=== PATIENT | female | born 1985 | race Caucasian/White ===

== ENCOUNTER 2019-09-23 20:50 | Day surgery (SDC) | payer OTHER ==
[2019-09-23 21:20] VITALS: BMI 36.3
[2019-09-23 21:33] LABS: Amnisure Test No Membranes Rupture (No Rupture)
[2019-09-23 21:34] LABS: Amnisure Internal Control QC ACCEPTABLE (ACCEPTABLE)
[2019-09-23] MEDS ORDERED: hydrALAZINE 20 MG/ML VIAL SLOW IVP PRN (21:35)
--- NOTE | 2019-09-23 21:50 | PDOC.EVN ---
Event Note - Event Note Event Note: OBGYN: SSE reviewed with the patient and family member. SSE completed by me with no gel on the spec. No pooling. No LOF with cough or valsalva. also negative. CX looks visually closed. OK for outpatient care. Continue progesterone.
--- NOTE | 2019-09-23 22:00 | HP ---
TIME: 2140 hours. LOCATION: Labor and Delivery Triage, in bed B. Patient of Dr. Dias. CHIEF COMPLAINT: She is here at 26 weeks and 5 days with possible leakage of fluid x1. HISTORY OF PRESENT ILLNESS: This is a 33-year-old, G4, P1 with a previous at 36 weeks, who is now at 26 weeks and 5 days, who states that she had some vaginal pressure and then felt "possible small leak x1 at about 18:30." This has come and gone, and she is not actively having the symptoms now. She denies vaginal bleeding or fever or any true contractions. She denies any headache or visual changes. REVIEW OF SYSTEMS: Complete review of systems was checked and is otherwise negative unless specified in the HPI. PAST MEDICAL HISTORY: Negative. OB HISTORY: She had a at 36 weeks. PAST SURGICAL HISTORY: Includes her and foot surgery. MEDICATIONS: Progesterone by IM injection. ALLERGIES: NONE. PHYSICAL EXAMINATION: VITAL SIGNS: Show a blood pressure of 118/78, temperature of 98.7, pulse of 100, respirations are 16 to 18 and they are unlabored. GENERAL: She is in no acute distress. ABDOMEN: Soft and nontender. : Perineal exam reveals no evidence of gross rupture or vaginal bleeding. Sterile spec exam is currently pending. On monitor, heart tones are in the 130s to 140s and there is variability and is reactive. There are no contractions on tocodynamometer. It is important to note that even though the estimated gestational age is 26 weeks, it is reactive for dates. Interventions ordered; I have requested an AmniSure and that is pending. ASSESSMENT: This is a 33-year-old, G4, P1, with a previous x1, who is currently at 26 weeks and 5 days with a concern of leakage of fluid. PLAN: 1. AmniSure is collected and pending. 2. Sterile spec exam pending. 3. If both of these are negative, we will give reassurance. 4. We will also check her cervix visually with sterile spec exam. Job ID: [id number]
== END 2019-09-23 22:00 | disposition home or self-care (01) ==
LOC: L&D/OP 20:50
PROVIDERS: ATTEND Student in an Organized Health Care Education/Training Program
DX: O99.89 Other specified diseases and conditions complicating pregnancy, childbirth and the puerperium (principal); R10.2 Pelvic and perineal pain; O34.219 Maternal care for unspecified type scar from previous cesarean delivery; Z3A.26 26 weeks gestation of pregnancy
CPT/HCPCS: 84112; 99283

== ENCOUNTER 2019-12-17 02:45 | Inpatient (IN) | payer OTHER ==
[2019-12-17 03:12] VITALS: BMI 37.8
[2019-12-17] MEDS: Lactated Ringer's 1,000 ML IV SCH ×2 (03:35→22:11)
[2019-12-17] MEDS ORDERED: Ondansetron PF 4 MG/2 ML Vial IVP PRN ×3 (03:58→10:53)
[2019-12-17] MEDS ORDERED: Promethazine HCl 25 MG/ML VIAL IM PRN ×4 (03:58→10:53)
[2019-12-17] MEDS ORDERED: hydrALAZINE 20 MG/ML VIAL SLOW IVP PRN ×2 (03:58→10:53)
[2019-12-17] MEDS ORDERED: Bicitra 30 ML UDCUP PO SCH (04:00)
[2019-12-17] MEDS ORDERED: CEFAZOLIN 2 GM in Premix Bag 1 BAG IVPB SCH ×2 (04:00→07:30)
[2019-12-17] MEDS ORDERED: Azithromycin 500 MG in Sodium Chloride 0.9% 250 ML 250 ML IVPB SCH ×2 (04:00→07:30)
--- NOTE | 2019-12-17 04:05 | PDOC.LDHP ---
Labor and Delivery H&P Chief complaint: scheduled section HPI: 34 y/o WF at 39 weeks prior c/s-scheduled for repeat this morningEDC .. Had srom this AM-clear... Current gestational age (weeks): 39 Dating criteria: last menstrual period Grav: 3 Para: 1 Current complications: other (prior c/s) Abnormal US findings: No Current medications: pre-hyacinth vitamins Previous surgical history: low tranverse CS, other (colonoscopy,EGD,foot surgery , section 2017.) Allergies/Adverse Reactions: Allergies Allergy/AdvReac Type Severity Reaction Status Date / Time No Known Allergies Allergy Verified 12/17/19 03:13 Social history: none - Physical Exam General: resting Heart: RRR Lungs: nonlabored breathing Abdomen: NTTP Extremeties: no edema FHT: category 1 - Vaginal Exam cm dilated: 1 Effacement: 50% Station: -1 - OB Labs Blood type: A RH: positive Antibody Screen: negative HIV: negative RPR: negative HEPSAg: negative 3 hour GTT: [id number] well with diet GBS: negative Urine drug screen: negative Rubella: immune - Assessment L&D Assessment: scheduled primary section
[2019-12-17] MEDS: Butorphanol Tartrate 1 MG/ML VIAL SLOW IVP SCH ×3 (04:26→11:19)
[2019-12-17 04:30] LABS: Hemoglobin 12.3 g/dL (12.0-16.0); Mean Corpuscular HGB CONC 31.8 g/dL (32.0-36.0); Mean Corpuscular Hemoglobin 29.6 pg (27.0-31.0); Mean Corpuscular Volume 93.1 fL (78.0-98.0); Mean Platelet Volume 10.3 fL (7.4-10.4); Platelet Count 161 thou/uL (130-400); RBC Distribution Width 13.9 % (11.5-14.5); Red Blood Cell (RBC) Count 4.15 mill/uL (4.20-5.40); White Blood Cell (WBC) Count 8.9 thou/uL (4.8-10.8)
[2019-12-17 05:14] LABS: Hep B Surf Ag Non-Reactive S/CO (NonReactive)
[2019-12-17 05:15] LABS: Syphilis Antibody Nonreactive (Nonreactive); Syphilis Antibody Index 0.05 S/CO (<1.00 Non-Reactive)
[2019-12-17] MEDS ORDERED: MORPHINE 5 MG/10 ML PF VIAL ONE (07:23)
[2019-12-17] MEDS ORDERED: Oxytocin 10 UNITS/ML VIAL ONE ×2 (07:24→08:21)
[2019-12-17] MEDS ORDERED: Ondansetron PF 4 MG/2 ML Vial ONE (07:24)
--- NOTE | 2019-12-17 07:56 | PDOC.OPDEL ---
OB Operative/Delivery Note Delivery Dr/Surgeon: Larissa Assist: Kamla Pre-Delivery Diagnosis: active labor ( at 38w) Procedure/Post Delivery Dx: repeat low transverse CS Weeks gestation: 38 Anesthesia: spinal - Findings A Sex: male - Additional Findings/Plan Placenta delivered: spontaneous findings: low transverse hysterotomy without extension, normal uterus, normal tubes, normal ovaries Post delivery plan: routine recovery
[2019-12-17] MEDS ORDERED: Ketorolac Tromethamine 30 MG/ML VIAL ONE (10:01)
[2019-12-17] MEDS ORDERED: Naloxone HCl 0.4 mg/ml Vial IV PRN (10:12)
[2019-12-17] MEDS ORDERED: Promethazine HCl 25 MG/ML VIAL SLOW IVP PRN (10:12)
[2019-12-17] MEDS ORDERED: Promethazine HCl 25 MG SUPP PR PRN (10:12)
[2019-12-17] MEDS ORDERED: Naloxone HCl 0.4 mg/ml Vial IVP PRN ×2 (10:12)
[2019-12-17] MEDS ORDERED: diphenhydrAMINE 50 MG/ML VIAL IVP PRN (10:12)
[2019-12-17] MEDS ORDERED: Ondansetron HCl/PF 4 MG/2 ML Vial IVP PRN (10:12)
[2019-12-17] MEDS ORDERED: Communication Order-Pharmacy FS SCH (10:15)
[2019-12-17] MEDS: Ketorolac Tromethamine 30 MG/ML VIAL IVP PRN ×3 (10:18→23:51)
[2019-12-17] MEDS ORDERED: Bisacodyl 10 MG SUPP PR PRN (10:53)
[2019-12-17] MEDS ORDERED: Lanolin Ointment 7 GM TUBE TOP PRN (10:53)
[2019-12-17] MEDS ORDERED: Acetaminophen 325 MG TAB PO PRN (10:53)
[2019-12-17] MEDS ORDERED: Simethicone Chewable 80 MG TAB PO PRN (10:53)
[2019-12-17] MEDS ORDERED: diphenhydrAMINE 25 MG CAP PO PRN (10:53)
[2019-12-17] MEDS ORDERED: NS / Oxytocin 40 units/1000ml 1,000 ML ONE (12:41)
[2019-12-17] MEDS: Docusate Calcium (SURFAK) 240 MG CAP PO SCH (22:11)
[2019-12-17] MEDS: Ferrous Sulfate 325 MG TAB PO SCH (22:13)
[2019-12-17] MEDS ORDERED: HYDROcodone/Acetaminophen 5/325 mg Tablet PO PRN (22:15)
[2019-12-17] MEDS ORDERED: Zolpidem Tartrate 5 MG TAB PO PRN (22:15)
[2019-12-18 05:44] LABS: Mean Corpuscular HGB CONC 33.3 g/dL (32.0-36.0); Mean Corpuscular Hemoglobin 31.4 pg (27.0-31.0); Mean Corpuscular Volume 94.4 fL (78.0-98.0); Mean Platelet Volume 9.5 fL (7.4-10.4); Platelet Count 124 thou/uL (130-400); RBC Distribution Width 13.9 % (11.5-14.5); Red Blood Cell (RBC) Count 3.19 mill/uL (4.20-5.40); White Blood Cell (WBC) Count 8.8 thou/uL (4.8-10.8)
[2019-12-18] MEDS: HYDROcodone/Acetaminophen 5/325 mg Tablet PO PRN ×3 (07:18→22:07)
[2019-12-18] MEDS: Prenatal Vitamin 1 TAB PO SCH (07:19)
[2019-12-18] MEDS: Docusate Calcium (SURFAK) 240 MG CAP PO SCH ×2 (07:19→22:07)
[2019-12-18] MEDS ORDERED: Adacel (T-DAP) 0.5 ML SYRINGE IM ONE (09:00)
[2019-12-18] MEDS: Ferrous Sulfate 325 MG TAB PO SCH ×2 (13:13→21:47)
[2019-12-18] MEDS: Ibuprofen 800 MG TAB PO SCH ×2 (19:42→22:07)
[2019-12-19] MEDS: Ibuprofen 800 MG TAB PO SCH (05:38)
[2019-12-19 07:46] VITALS: BP 120/79; TEMP 98.6
--- NOTE | 2019-12-19 08:22 | PDOC.PP ---
Post Progress Note Post Day #: 1 PO intake tolerated: yes Flatus: yes Ambulation: yes Vital Signs (12 hours) Temp Pulse Resp BP Pulse Ox 12/19/19 07:45 98.6 F 76 20 120/79 97 12/19/19 05:35 98.3 F 80 18 114/75 97 12/18/19 23:57 98.0 F 94 18 124/77 97 12/18/19 20:40 98.2 F 80 18 123/70 98 Weight Weight 187 lb - Physical Examination General: NAD Respiratory: non-labored breathing Abdominal: no distention, appropriately TTP Fundus firm & at: umb Extremities: negative homans (B) Skin: CS incision dry & intact Neurological: no gross focal deficits Psychiatric: normal affect Result Diagrams: 12/18/19 05:21 Additional Labs: Post Labs Blood Type A POSITIVE 12/17/19 04:20 Hep Bs Antigen Non-Reactive S/CO (NonReactive) 12/17/19 04:21 - Assessment/Plan POD1 s/p RCS VSSAF Mild postop anemia d/t surgical blood loss, asx, cont iron and pnv Meeting appropriate milestones Rh pos RImm Cont postop care
--- NOTE | 2019-12-19 08:23 | PDOC.PP ---
Post Progress Note Post Day #: 2 PO intake tolerated: yes Flatus: yes Ambulation: yes Vital Signs (12 hours) Temp Pulse Resp BP Pulse Ox 12/19/19 07:45 98.6 F 76 20 120/79 97 12/19/19 05:35 98.3 F 80 18 114/75 97 12/18/19 23:57 98.0 F 94 18 124/77 97 12/18/19 20:40 98.2 F 80 18 123/70 98 Weight Weight 187 lb - Physical Examination General: NAD Respiratory: non-labored breathing Abdominal: no distention, appropriately TTP Fundus firm & at: umb Extremities: negative homans (B) Skin: CS incision dry & intact Neurological: no gross focal deficits Psychiatric: normal affect Result Diagrams: 12/18/19 05:21 Additional Labs: Post Labs Blood Type A POSITIVE 12/17/19 04:20 Hep Bs Antigen Non-Reactive S/CO (NonReactive) 12/17/19 04:21 - Assessment/Plan POD2 s/p RCS VSSAF Met all milestones pain controlled DC home FU 2 weeks
[2019-12-19] MEDS: Docusate Calcium (SURFAK) 240 MG CAP PO SCH (09:12)
[2019-12-19] MEDS: HYDROcodone/Acetaminophen 5/325 mg Tablet PO PRN (09:12)
[2019-12-19] MEDS: Prenatal Vitamin 1 TAB PO SCH (09:12)
[2019-12-19] MEDS: Ferrous Sulfate 325 MG TAB PO SCH (09:12)
== END 2019-12-19 13:32 | disposition home or self-care (01) | DRG 787 ==
LOC: L&D/OP 02:45 → L&D 03:42 → 3SE 11:34
PROVIDERS: ADMIT Student in an Organized Health Care Education/Training Program; ATTEND Student in an Organized Health Care Education/Training Program
PROC: 10D00Z1 Extraction of Products of Conception, Low, Open Approach (ICD-10-PCS; principal; 2019-12-17)
DX: O34.211 Maternal care for low transverse scar from previous cesarean delivery (principal); D62 Acute posthemorrhagic anemia; Z3A.39 39 weeks gestation of pregnancy; Z37.0 Single live birth; O90.81 Anemia of the puerperium
CPT/HCPCS: 36415; 51702; 85027; 86780; 86850; 86870; 86900; 86901; 86922; 87340; 99285; J0595; J1885; J2274; J2405; J2590